=== PATIENT | female | born 1960 | race Caucasian/White ===

== ENCOUNTER 2023-02-16 09:55 | Emergency (ER) | payer BC ==
[2023-02-16] MEDS ORDERED: Sodium Chloride 0.9% 10 ML Syringe FLUSH PRN (09:59)
[2023-02-16 10:08] LABS: BASOPHILS ABSOLUTE AUTO 0.1 x10-3/uL (0.0-0.1); EOSINOPHILS ABSOLUTE AUTO 0.2 x10-3/uL (0.0-0.8); EOSINOPHILS PERCENT AUTO 3.1 % (0.6-8.1); HEMOGLOBIN 13.9 g/dL (11.4-15.5); LYMPHOCYTES PERCENT AUTO 20.7 % (18.4-52.1); MEAN CORPUSCULAR HEMOGLOBIN 29.6 pg (23.9-33.9); MEAN CORPUSCULAR VOLUME 87.1 fL (76.7-100.5); MEAN PLATELET VOLUME 8.2 fL (7.1-12.4); MONOCYTES ABSOLUTE AUTO 0.4 x10-3/uL (0.3-1.0); MONOCYTES PERCENT AUTO 8.6 % (4.4-15.7); NEUTROPHILS ABSOLUTE AUTO 3.4 x10-3/uL (1.5-6.3); NEUTROPHILS PERCENT AUTO 66.6 % (30.8-76.2); PLATELET COUNT,PLT 205 x10(3)uL (151-488); RED CELL DISTRIBUTION WIDTH 14.5 % (12.3-16.5); WHITE BLOOD CELL COUNT,WBC 5.1 x10-3/uL (3.0-10.3)
[2023-02-16 10:15] LABS: BLOOD UREA NITROGEN,BUN 12 mg/dL (7-18); CALCIUM 9.6 mg/dL (8.6-10.2); CARBON DIOXIDE,CO2 31 mmol/L (21-32); CHLORIDE,CL 103 mmol/L (100-110); CREATININE 0.8 mg/dL (0.55-1.02); ESTIMATED GFR 84 mL/min (>60); GLUCOSE RANDOM 76 mg/dL (80-116); POTASSIUM,K 4.1 mmol/L (3.5-5.3); SODIUM,NA 140 mmol/L (135-145)
[2023-02-16 10:21] LABS: A/G RATIO 1.1; ALANINE AMINOTRANSFERASE,ALT 24 U/L (12-36); ALBUMIN 3.4 g/dL (3.2-4.6); ALKALINE PHOSPHATASE 59 IU/L (56-112); ASPARTATE AMNIOTRANSFERASE,AST 15 IU/L (5-25); BILIRUBIN TOTAL 0.5 mg/dL (0.1-1.3); PROTEIN TOTAL,TP 6.4 g/dL (6.0-8.0)
[2023-02-16 10:36] LABS: INR 0.9 (1.00-1.24); PROTHROMBIN TIME 9.3 sec (9.0-11.1)
[2023-02-16 10:38] LABS: PTT,PARTIAL THROMBOPLSTIN TIME 25.2 SECONDS (24.4-33.2)
[2023-02-16 11:18] LABS: CORONAVIRUS COVID-19 NAA NEGATIVE (NEGATIVE); INFLUENZA A NAA NEGATIVE (NEGATIVE); INFLUENZA B NAA NEGATIVE (NEGATIVE)
== END 2023-02-16 12:45 ==
LOC: FB.ED 09:55
DX: I67.9 Cerebrovascular disease, unspecified (principal); E78.5 Hyperlipidemia, unspecified; M32.10 Systemic lupus erythematosus, organ or system involvement unspecified; Z20.822 Contact with and (suspected) exposure to COVID-19
CPT/HCPCS: 0240U; 36415; 70450; 71045; 80053; 82947; 84484; 85025; 85610; 85730; 93005; 99285; J3490

== ENCOUNTER → 2023-10-20 | Day surgery (SDC) | payer BC ==
[~2023-10-20] MED LIST: Midazolam 1 MG/ML 2 ML SDV IV ONE; Propofol 200 MG/20 ML SDV IV ONE; Sodium Chloride 0.9% 10 ML Syringe FLUSH PRN; fentaNYL 100 MCG/2 ML SDV IV ONE
[2023-10-20] MEDS: Lactated Ringers 1,000 ML IV SCH (07:26)
[2023-10-20] MEDS: Simethicone Drops 40 MG/0.6 ML 30 ML Bottle ONE (07:38)
== END ==
LOC: FB.SDS 06:16
PROVIDERS: ATTEND Surgery
DX: K64.1 Second degree hemorrhoids (principal); K62.5 Hemorrhage of anus and rectum; E66.9 Obesity, unspecified; K21.9 Gastro-esophageal reflux disease without esophagitis; Z86.010 Personal history of colon polyps; Z80.0 Family history of malignant neoplasm of digestive organs; Z79.899 Other long term (current) drug therapy; Z79.82 Long term (current) use of aspirin; Z79.2 Long term (current) use of antibiotics
CPT/HCPCS: 00811; 45378; A9270; J2250; J2704; J3010; J7120